=== PATIENT | female | born 1940 | race Caucasian/White ===

== ENCOUNTER 2023-06-19 08:30 | Observation (INO) ==
--- NOTE | 2023-05-18 10:41 | PAT Medication Instructions ---
Medication Instructions Date of Service May 18, 2023 Home Medications acetaminophen 500 mg capsule 500 mg PO BID aspirin 81 mg capsule 81 mg PO QAM atorvastatin 10 mg tablet (Lipitor) 10 mg PO PM calcium 1 dose PO BID cholecalciferol (vitamin D3) 50 mcg (2,000 unit) tablet (Vitamin D3) 50 mcg PO BID coenzyme Q10 100 mg capsule (CoQ-10) 100 mg PO QAM glucosamine sulf dipot chlr,msm,chond 550 mg-C 30 mg-edita 1 mg capsule (Glucosamine Chondroitin) 1 cap PO BID levothyroxine 25 mcg tablet 25 mcg PO QAM loratadine 10 mg tablet (Claritin) 10 mg PO QAM multivitamin 1 tab PO QAM omega-3 fatty acids 1,250 mg PO BID pregabalin 100 mg capsule (Lyrica) 100 mg PO TID sertraline 50 mg tablet (Zoloft) 50 mg PO BID vit C-vit B-htdeef-affxbrzg capsule 1 cap PO QAM ASK your prescriber and surgeon aspirin 81 mg capsule 81 mg PO QAM STOP taking 2 weeks before surgery (or as soon as possible if surgery is within 2 weeks) coenzyme Q10 100 mg capsule (CoQ-10) 100 mg PO QAM glucosamine sulf dipot chlr,msm,chond 550 mg-C 30 mg-edita 1 mg capsule (Glucosamine Chondroitin) 1 cap PO BID omega-3 fatty acids 1,250 mg PO BID vit C-vit X-tocidz-ensoculz capsule 1 cap PO QAM DO NOT take the morning of surgery calcium 1 dose PO BID cholecalciferol (vitamin D3) 50 mcg (2,000 unit) tablet (Vitamin D3) 50 mcg PO BID loratadine 10 mg tablet (Claritin) 10 mg PO QAM multivitamin 1 tab PO QAM Take morning of surgery With a small sip of water, OTHERWISE NOTHING TO EAT OR DRINK AFTER MIDNIGHT: acetaminophen 500 mg capsule 500 mg PO BID levothyroxine 25 mcg tablet 25 mcg PO QAM pregabalin 100 mg capsule (Lyrica) 100 mg PO TID sertraline 50 mg tablet (Zoloft) 50 mg PO BID Take evening before surgery acetaminophen 500 mg capsule 500 mg PO BID atorvastatin 10 mg tablet (Lipitor) 10 mg PO PM calcium 1 dose PO BID cholecalciferol (vitamin D3) 50 mcg (2,000 unit) tablet (Vitamin D3) 50 mcg PO BID pregabalin 100 mg capsule (Lyrica) 100 mg PO TID sertraline 50 mg tablet (Zoloft) 50 mg PO BID Other Notes If you have any questions please call us at [phone] or [phone] or [phone] or [phone]
--- NOTE | 2023-05-22 12:20 | Anesthesiology Consultation ---
Date of Service May 22, 2023 Assessment & Plan (1) Encounter for pre-operative examination: Plan - PCP office note Dr. Purdy 05/09/23: "...left TKR...F/U with Dr. Berg as scheduled. Surgery in " - Outpatient joint assessment: Patient is currently scheduled for inpatient pathway. If re-evaluated and patient/surgeon requests outpatient pathway, patient is not recommended candidate for outpatient joint program from anesthesia standpoints. Chart Review Chart Review: Acceptable Risk for Surgery and Patient seen in Pre Admission Testing Teaching & Discussion Pre-Anesthesia Teaching/Discussion Notes: Instructed NPO after midnight before surgery, except medications with 15 cc of water. Medication instructions provided according to the PAT guidelines. History Surgery Operation Date: 06/19/23 07:00 Proposed Procedures p Left Total Knee Arthroplasty - Chadwick Berg DO Height/Weight Height: 5 ft 6 in Weight: 91.5 kg Allergies Allergy/AdvReac Type Severity Reaction Status Date / Time No Known Allergies Allergy Verified 05/09/23 15:34 Medications Home Medications Medication Instructions Recorded Confirmed Last Taken acetaminophen 500 mg capsule 500 mg PO BID 05/09/23 05/09/23 Unknown aspirin 81 mg capsule 81 mg PO QAM 05/09/23 05/09/23 Unknown atorvastatin 10 mg tablet (Lipitor) 10 mg PO PM 05/09/23 05/09/23 Unknown calcium 1 dose PO BID 05/09/23 05/09/23 Unknown cholecalciferol (vitamin D3) 50 50 mcg PO BID 05/09/23 05/09/23 Unknown mcg (2,000 unit) tablet (Vitamin D3) coenzyme Q10 100 mg capsule 100 mg PO QAM 05/09/23 05/09/23 Unknown (CoQ-10) glucosamine sulf dipot 1 cap PO BID 05/09/23 05/09/23 Unknown chlr,msm,chond 550 mg-C 30 mg-edita 1 mg capsule (Glucosamine Chondroitin) levothyroxine 25 mcg tablet 25 mcg PO QAM 05/09/23 05/09/23 Unknown loratadine 10 mg tablet (Claritin) 10 mg PO QAM 05/09/23 05/09/23 Unknown multivitamin 1 tab PO QAM 05/09/23 05/09/23 Unknown omega-3 fatty acids 1,250 mg PO BID 05/09/23 05/09/23 Unknown pregabalin 100 mg capsule (Lyrica) 100 mg PO TID 05/09/23 05/09/23 Unknown sertraline 50 mg tablet (Zoloft) 50 mg PO BID 05/09/23 05/09/23 Unknown vit C-vit G-gswvai-ppddaaku capsule 1 cap PO QAM 05/09/23 05/09/23 Unknown torsemide 20 mg tablet 20 mg PO DAILY PRN Edema 05/22/23 05/22/23 Unknown Additional Notes: Patient was advised and it was written on medication instructions to NOT take torsemide. She verbalized understanding and denied additional medications, questions or concerns. Past Medical History Medical History (Updated 05/22/23 @ 12:40 by Marie Joseph PA-C) Abdominal adhesions Asthma rare use of PRN inh-last used approx. 1 year ago Chronic pain abdominal adhesions. History of blood transfusion in childhood had fall and subsequent facial trauma with epistaxis that was difficult to control. History of right breast cancer dx'd 2017. surgery + radiation. right arm restriction. Hypothyroidism Limb alert care status right arm Urge incontinence of urine Venous insufficiency wears compression stockings Patient denies h/o stroke, seizures, heart attack, heart failure, DM, HTN, or blood clots/DVTs. Exercise / Class Metabolic Activity III < 4 Walking/Shop/Light housework (ambulates with cane, denies chest discomfort or shortness of breath with usual activities) Past Family History Family History Other No family history of adverse response to anesthesia Past Surgical History Surgical History History of bilateral oophorectomy History of colonoscopy History of hysterectomy History of laparoscopy History of lumpectomy of right breast History of vein stripping BLLE Past Anesthesia History No Hx of Anesthesia Complications and No Family Hx of Anesthesia Complications History of PONV No Hx of PONV and No Hx of Motion Sickness Social History Smoking Status: Former smoker Do You Dip or Chew Tobacco: No Smoking End Date: 1987 Hx Alcohol Use: Yes Alcohol type: wine alcohol intake frequency: holidays/special occasions only Hx Substance Use: No substance use type: does not use Review of Systems Patient denies chest pain, shortness of breath, dyspnea on exertion, snoring, witnessed apneas, reflux, fever, chills, cough, wheezing, or palpitations. Physical Exam Vital Signs Vitals BP 161/80 (Pt reports some stress/anxiety regarding the drive here today with traffic and being in the hospital for appt) P 77 TEMP 97.8 SP02 94% on RA RESP 18 Physical Patient resting comfortably in chair in no acute distress, alert and oriented, responding appropriately throughout visit Mildly limited cervical extension range of motion without pain TMD 3.5 finger breadths Mallampati Score 3 Dentition: several implants, caps and crowns, denies chipped or loose teeth, or bridges Lungs: normal respiratory effort. Good air movement, clear throughout to auscultation, no adventitious breath sounds Cardiac: regular rate and rhythm, no murmurs noted Carotid arteries: negative bruit bilat Lab Results Anesthesia Preop Results Results Anesthesia Widget: WBC 6.98 K/ul (4.8-10.8) 05/22/23 Hgb 13.0 g/dl (12.0-16.0) 05/22/23 Hct 39.2 % (37.0-47.0) 05/22/23 Plt 222 K/uL (130-400) 05/22/23 Na 142 mmol/L (136-145) 05/22/23 K 4.6 mmol/L (3.5-5.1) 05/22/23 Cl 107 mmol/L (98-107) 05/22/23 CO2 32 mmol/L (21-32) 05/22/23 BUN 26 mg/dl (6-23) H 05/22/23 Creat 0.60 mg/dl (0.6-1.2) 05/22/23 Glucose Level 92 mg/dl (70-99(Fasting)) 05/22/23 PT 10.3 Seconds (9.0-12.0) 05/22/23 PTT 28 Seconds (21-31) 05/22/23 INR 0.9 (0.9-1.1) 05/22/23 Blood Type A Positive 05/22/23 Antibody Screen NEGATIVE 05/22/23 Testing Electrocardiogram Date: 05/22/23 NSR, rate 75 bpm Chest X-Ray Date: 08/31/22 No acute cardiopulmonary abnormality
--- NOTE | 2023-06-15 12:28 | History & Physical Report ---
Date of Service June 15, 2023 Assessment & Plan (1) Osteoarthritis of left knee: We will proceed with a left total knee arthroplasty. Postoperatively she will be started on aspirin for DVT prophylaxis and kept overnight in the hospital for postop medical management. Plans to go to outpatient physical therapy in [facility] upon discharge. History of Present Illness Chief Complaint: Osteoarthritis of the left knee. Primary Care Provider: Deya Titus Gurwinder Crabtree is a pleasant 82-year-old female who lives up in the [facility]. She has been dealing with chronic increasing left knee pain. She uses a cane to ambulate. X-rays and clinical examination have been diagnostic for advanced arthritis of her left knee. She has been receiving injections and care from another physician. Unfortunately, the injections are no longer helping. After failing conservative treatment, she has elected proceed with a left total knee arthroplasty. Allergies Allergy/AdvReac Type Severity Reaction Status Date / Time No Known Allergies Allergy Verified 05/09/23 15:34 Home Medications Medication Instructions Recorded Confirmed Type acetaminophen 500 mg capsule 500 mg PO BID 05/09/23 05/09/23 History aspirin 81 mg capsule 81 mg PO QAM 05/09/23 05/09/23 History atorvastatin 10 mg tablet (Lipitor) 10 mg PO PM 05/09/23 05/09/23 History calcium 1 dose PO BID 05/09/23 05/09/23 History cholecalciferol (vitamin D3) 50 50 mcg PO BID 05/09/23 05/09/23 History mcg (2,000 unit) tablet (Vitamin D3) coenzyme Q10 100 mg capsule 100 mg PO QAM 05/09/23 05/09/23 History (CoQ-10) glucosamine sulf dipot 1 cap PO BID 05/09/23 05/09/23 History chlr,msm,chond 550 mg-C 30 mg-edita 1 mg capsule (Glucosamine Chondroitin) levothyroxine 25 mcg tablet 25 mcg PO QAM 05/09/23 05/09/23 History loratadine 10 mg tablet (Claritin) 10 mg PO QAM 05/09/23 05/09/23 History multivitamin 1 tab PO QAM 05/09/23 05/09/23 History omega-3 fatty acids 1,250 mg PO BID 05/09/23 05/09/23 History pregabalin 100 mg capsule (Lyrica) 100 mg PO TID 05/09/23 05/09/23 History sertraline 50 mg tablet (Zoloft) 50 mg PO BID 05/09/23 05/09/23 History vit C-vit W-zepkuv-jacscdtz capsule 1 cap PO QAM 05/09/23 05/09/23 History torsemide 20 mg tablet 20 mg PO DAILY PRN Edema 05/22/23 05/22/23 History Past Med/Surg History Medical History History of blood transfusion in childhood had fall and subsequent facial trauma with epistaxis that was difficult to control. Limb alert care status right arm Venous insufficiency wears compression stockings Chronic pain abdominal adhesions. Hypothyroidism Abdominal adhesions Urge incontinence of urine History of right breast cancer dx'd 2016. surgery + radiation. right arm restriction. Asthma rare use of PRN inh-last used approx. 1 year ago Surgical History History of laparoscopy History of bilateral oophorectomy History of hysterectomy History of colonoscopy History of lumpectomy of right breast History of vein stripping BLLE Family History Other No family history of adverse response to anesthesia Social History Smoking Status: Former smoker Smoking End Date: 1987; Second Hand Exposure: No; Do You Dip or Chew Tobacco: No; Tobacco Cessation Education Requested by Patient: No Hx Alcohol Use: Yes Alcohol type: wine Hx Substance Use: No Preferred Language: Kinyarwanda Communication Ability: Effective Kickboxing Instructor Required: No Beliefs That Will Affect Care: None and Amish Amish Beliefs: Alevism Current Living Situation: Spouse Feels Safe at Home: Yes Safety Concerns: Feels Safe At This Time Assistive Devices: Cane, Glasses and Walker Review of Systems All systems reviewed & are unremarkable except as noted in HPI & below. Physical Exam Physical examination of the left knee, she has a significant varus deformity. She has range of motion from 5 to 115 degrees.. Constitutional WD/WN, vitals as above Eyes PERRL, conjunctivae normal, anicteric sclerae ENMT external ear and nose normal, oropharynx normal Neck trachea midline, no thyromegaly Respiratory normal respiratory effort Cardiovascular RRR, no murmur, no edema Gastrointestinal (Abdomen) normal bowel sounds, soft, nontender, no hepatosplenomegaly Psychiatric A+Ox3, euthymic affect Results & Data Results & Data Laboratory Results . Diagnostic Findings X-rays of the left knee show advanced osteoarthritis with joint space narrowing, osteophyte formation, and mzqz-ov-gnwi tubulation. PG Care Time/CCT Total # of Minutes Spent Total Time Spent with Patient: Total time spent is greater than 50% in coordination of care (as documented) at patient's floor/unit and/or counseling patient: Coding Level of Care Code None Diagnoses Osteoarthritis of left knee M17.12
[~2023-06-19 08:30] MED LIST: ROPIVACAINE 0.5% 5 MG/ML 30 ML VIAL ONE
--- NOTE | 2023-06-19 09:41 | History & Physical Bridge Note ---
Date of Service June 19, 2023 History & Physical Bridge Note I have examined the patient, reviewed the History & Physical and in the interval since the performance of the History & Physical I have noted the following changes of clinical significance: no changes noted
[2023-06-19] MEDS: GABAPENTIN 300 MG CAP PO SCH (09:50)
[2023-06-19] MEDS: ACETAMINOPHEN 500 MG TAB PO SCH ×2 (09:50→14:00)
[2023-06-19] MEDS: LR 60ML/HR IV SCH (09:51)
[2023-06-19] MEDS: LR 500ML BOLUS, THEN 15ML/HR IV SCH (09:51)
[2023-06-19] MEDS: dexAMETHasone**PF** 10 MG/ML VIAL IV SCH (09:51)
[2023-06-19] MEDS: FAMOTIDINE 20 MG TAB PO SCH (09:51)
[2023-06-19] MEDS ORDERED: fentaNYL citrate PF 100 MCG/2 ML VIAL IV PRN (10:03)
[2023-06-19] MEDS ORDERED: ATROPINE SULFATE 0.1 MG/ML 10ML SYR IV PRN (10:03)
[2023-06-19] MEDS ORDERED: ONDANSETRON INJ 2 MG/ML 2 ML VIAL IV PRN ×2 (10:03→13:24)
[2023-06-19] MEDS ORDERED: HYDROmorphone INJ 1 MG/ML SYRINGE IV PRN (10:03)
[2023-06-19] MEDS ORDERED: ePHEDrine sulfate 50 MG/ML AMP IV PRN (10:03)
[2023-06-19] MEDS ORDERED: fentaNYL citrate PF 100 MCG/2 ML VIAL ONE (10:12)
[2023-06-19] MEDS ORDERED: MIDAZOLAM HCL 1 MG/ML 2ML VIAL ONE (10:12)
[2023-06-19] MEDS: TRANEXAMIC ACID 1,000 MG **IV Pre-op IV SCH (10:13)
[2023-06-19] MEDS: ceFAZolin 2000MG 2,000 MG/15 ML SYR IV SCH ×2 (10:34→17:15)
[2023-06-19] MEDS: ROPIV 0.5% 246mg, Ketorolac 30mg, EPINEPHrine 0.5mg in NSS INFIL SCH (11:09)
[2023-06-19] MEDS: ORTHO JOINT ANESTHETIC ONE (11:10)
[2023-06-19] MEDS: TRANEXAMIC ACID 1,000 MG **IV Intra-op IV SCH (11:45)
--- NOTE | 2023-06-19 11:55 | Operative Report ---
PG Post Operative Report Pre & Post Diagnosis Operation Date: 06/19/23 10:00 Pre-Op Diagnosis: Left Knee Degenerative Joint Disease Post-Op Diagnosis: Left Knee Degenerative Joint Disease I identified the patient and participated in the time-out.: Yes Procedure Operation Date: 06/19/23 10:00 Actual Procedures p Left Total Knee Arthroplasty(Left) - Chadwick Berg DO Surgeon Chadwick Berg DO [employer] Sales Associate Chadwick Castro PA-C Estimated Blood Loss 30 Findings Consistent with Post-Op Diagnosis Specimens Left femoral tibial bone Description of Procedure Implants used: I used a Jay Person[employer] total knee arthroplasty system with a size 10 PS femur, F tibia, 31 oval patella, and a size 12 CPS polyethylene bearing. All comp onents were cemented in place with Biomet cement. Leyda arrived [facility] for the above procedure. She was seen in the preoperative holding area and the operative extremity was identified and signed. She was given a preoperative antibiotic, TXA, a spinal anesthetic and an adductor nerve block. She was taken back to the operating room and laid on the table in supine position. She was given basic sedation. The operative knee was then prepped and draped in sterile fashion. A timeout was done, and the patient and the operative extremity was properly identified. A midline incision was made directly over the patella. Dissection was taken down to the extensor mechanism. A medial parapatellar arthrotomy was used. The medial retinaculum was released and the fat pad was mostly excised. The knee was flexed and the ACL, PCL, and meniscus were removed. A drill was sent down the center of the femoral canal followed by an intramedullary esdras. Off that esdras a distal femoral cutting block was placed. 9 mm was resected off the distal femur at 5 of valgus. A posterior referencing AP sizing guide was then placed on the distal femur. The femur measured to be a size 10. 2 drill holes were placed in 3 of external rotation. A 4-in-1 cutting block was then impacted into place. Anterior, posterior, and chamfer cuts were then made. The proximal tibia was then exposed. An external tibial alignment guide was placed. A tibial cut guide was then anchored in place and the proximal tibia was then resected. The posterior aspect of the knee was then opened up and any additional meniscus fragments and osteophytes were removed. The tibia measured to be a size F. The tibial plate was then placed in the appropriate rotation and the tibia was drilled and punched. Trial components were then placed. I used a size 12 CPS polyethylene insert. The knee was brought through a full range of motion and felt to be stable. The peg holes for the femoral component were then drilled. The patella was then everted and 9 mm was resected off the posterior aspect of the patella. The patella measured to be a size 31 oval. 3 peg holes were then drilled. A trial patella was placed. The knee was once again brought through a full range of motion and felt to be stable. Trial components were then removed. The surrounding soft tissues were injected with 100 cc of an orthopedic pain control cocktail. All components were then cemented into place with Biomet cement. The final polyethylene insert was then snapped into place. Once cement was dry the tourniquet was deflated. Hemostasis was obtained. A dilute betadyne lavage was then done for 3 minutes. The joint was then irrigated with normal saline solution. The medial parapatellar arthrotomy was then closed with #1 Vicryl suture. The skin was closed with 2-0 Vicryl, 3-0V lock suture, and manjula. A soft compressive dressing was placed. She was then transferred to a hospital bed and taken to the postanesthesia care unit in stable condition. She tolerated the procedure well. Chadwick Castro PA-C, was present for the entire procedure. He was critical for patient positioning, prepping, draping, retraction exposure, wound closure and application of sterile dressing. I attest to the content of the Intraoperative Record and any orders documented therein. Any exceptions are noted below.
--- NOTE | 2023-06-19 12:48 | XRay Report ---
LEFT KNEE 2 VIEWS History: Left total knee arthroplasty. Degenerative arthritis. Postop. FINDINGS: The patient is status post a left total knee arthroplasty. The hardware is intact. No fract ure or dislocation. Skin manjula are in place. IMPRESSION: Left total knee arthroplasty. No evidence for hardware complication. ACT 112: Negative or not required by law. Electronically signed by: Aris Hutton M.D. 06/19/2023 12:46 PM
[2023-06-19] MEDS ORDERED: bisacodyL 10 MG SUPP PR PRN (13:24)
[2023-06-19] MEDS ORDERED: METOCLOPRAMIDE HCL INJ 5 MG/ML 2 ML VIAL IV PRN (13:24)
[2023-06-19] MEDS ORDERED: oxyCODONE HCL IR 5 MG TAB (IMMEDIATE RELEASE) PO PRN (13:24)
[2023-06-19] MEDS ORDERED: MAGNESIUM HYDROXIDE SUSP 30 ML UDC PO PRN (13:24)
[2023-06-19] MEDS ORDERED: NALOXONE HCL 0.4 MG/1 ML VIAL/CARP IV PRN (13:24)
[2023-06-19] MEDS ORDERED: HYDROmorphone INJ 0.5 MG/0.5 ML SYR IV PRN (13:24)
[2023-06-19] MEDS ORDERED: TORSEMIDE 20 MG TAB PO PRN (13:24)
[2023-06-19] MEDS: SODIUM CHLORIDE 0.9% 1,000 ML IV SCH (13:55)
[2023-06-19] MEDS: PREGABALIN 100 MG CAP PO SCH (14:00)
[2023-06-19] MEDS: KETOROLAC TROMETHAMINE 15 MG/ML VIAL IV SCH (14:00)
--- NOTE | 2023-06-19 15:12 | Anesthesiology Progress Note ---
Date of Service June 19, 2023 Anesthesia Post Procedure Vital Signs Vital Signs: Temp Pulse Pulse Resp BP Pulse Ox O2 Del Method 06/19/23 14:08 67 18 173/74 H 96 Room Air 06/19/23 13:51 36.3 C L 67 16 169/76 H 93 Room Air 06/19/23 13:10 36.4 C L 64 16 178/74 H 98 Room Air 06/19/23 12:55 55 L 15 156/69 H 93 Room Air 06/19/23 12:45 36.4 C L 56 L 15 148/67 H 94 Room Air 06/19/23 12:35 36.3 C L 58 L 14 160/70 H 94 Room Air 06/19/23 12:25 64 12 165/76 H 96 Room Air 06/19/23 12:15 63 14 141/71 H 100 Oxymask 06/19/23 12:05 36.0 C L 61 12 143/75 H 100 Oxymask 06/19/23 09:11 36.4 C L 69 20 169/76 H 94 Room Air O2 Flow Rate 06/19/23 14:08 06/19/23 13:51 06/19/23 13:10 06/19/23 12:55 0 06/19/23 12:45 0 06/19/23 12:35 0 06/19/23 12:25 0 06/19/23 12:15 8 06/19/23 12:05 8 06/19/23 09:11 Transfer of Care Handoff Completed per policy Notes Mental Status: alert / awake / arousable and participated in evaluation Patient Amnestic to Procedure: Yes Nausea / Vomiting: adequately controlled Pain: adequately controlled Airway Patency, RR, SpO2: stable & adequate BP & HR: stable & adequate Hydration State: stable & adequate Neuraxial Anesthesia: was administered and sensory block is resolving Anesthetic Complications: no major complications apparent and Pt Satisfied with anesthetic care
[2023-06-19] MEDS: ASPIRIN 81 MG ECTAB PO SCH (20:22)
[2023-06-19] MEDS: SENNA 8.6 MG TAB PO SCH (20:22)
[2023-06-19] MEDS: SERTRALINE HCL 50 MG TABLET PO SCH (20:22)
[2023-06-19] MEDS: ATORVASTATIN 10 MG TAB PO SCH (20:23)
[2023-06-19] MEDS: DOCUSATE SODIUM 100 MG CAP PO SCH (20:23)
--- NOTE | 2023-06-20 06:43 | Orthopedic Progress Note ---
Date of Service June 20, 2023 Assessment & Plan (1) Status post left knee replacement: Overall she is doing very well. She is not having much pain in the left knee. She will be seen by physical therapy today for ambulation and range of motion exercises. She is on aspirin for DVT prophylaxis. She can be discharged home later today. She will follow-up with orthopedics in [address]abtree was seen and examined at bedside this morning. Overall she is doing fairly well. She is not having much pain in her left knee. She has been up and ambulating to the bathroom. She has no complaints.. Review of Systems All systems reviewed & are unremarkable except as noted in HPI & below. Physical Exam On physical examination of the left knee, the dressing is clean and dry. Her leg is out in full extension. She has active dorsiflexion plantarflexion of her left ankle.. Results & Data Results & Data Laboratory Results . Diagnostic Findings Postoperative x-rays of the left knee show the prosthesis to be in anatomic alignment without any evidence of fracture, desiccation, or loosening.. PG Care Time/CCT Total # of Minutes Spent Total Time Spent with Patient: Total time spent is greater than 50% in coordination of care (as documented) at patient's floor/unit and/or counseling patient: Coding Level of Care Code 04204 Post Operative Follow-Up Diagnoses Status post left knee replacement Z96.652
--- NOTE | 2023-06-20 06:44 | Discharge Summary ---
Date of Service June 20, 2023 Admission HPI (Per Admitting) Leyda is a pleasant 82-year-old female who lives up in the [facility]. She has been dealing with chronic increasing left knee pain. She uses a cane to ambulate. X-rays and clinical examination have been diagnostic for advanced arthritis of her left knee. She has been receiving injections and care from another physician. Unfortunately, the injections are no longer helping. After failing conservative treatment, she has elected proceed with a left total knee arthroplasty. Admission Exam (Per Admitting) Physical examination of the left knee, she has a significant varus deformity. She has range of motion from 5 to 115 degrees.. Principal Diagnosis Same as "Discharge Diagnosis" noted below under Discharge Instructions. Discharge Exam On physical examination of the left knee, the dressing is clean and dry. Her leg is out in full extension. She has active dorsiflexion plantarflexion of her left ankle.. Discharge Data Procedures Performed Operation Date: 06/19/23 10:00 Actual Procedures p Left Total Knee Arthroplasty(Left) - Chadwick Berg DO Ordered Studies 06/19/23 05:00 US - OR guided needle placemen Routine Hospital Course (1) Status post left knee replacement: On June 19, 2023 Leyda arrived at [facility] and underwent a left knee replacement without complication. She had a spinal anesthetic. Postoperatively she was started on aspirin for DVT prophylaxis and transferred to the general orthopedic floors. Her hospital course was uneventful. On postop day #1, her vital signs were stable and her pain was well-controlled. She was able to participate well with physical therapy doing ambulation and range of motion exercises. She was then discharged to home. She will follow-up with orthopedics in 2 weeks. PG Care Time/CCT Total # of Minutes Spent Total Time Spent with Patient: Total time spent is greater than 50% in coordination of care (as documented) at patient's floor/unit and/or counseling patient: Discharge Plan Discharge Items Patient Disposition: Home - Self-Care Reason For Visit: Left Knee Degenerative Joint Disease Discharge Diagnosis: Left knee replacement Activity: Per Instructions section Non-emergency contact: Surgeon Call non-emergency contact if: your wound has increased redness and your wound has increased drainage Follow-up/Referrals: Deya Purdy D.OReinaldo [Primary Care Provider] - Diet: Regular Addtl Attending Provider Instructions: Activity and Therapy Recommendations: * If you are using [facility] then therapy will be provided at your home until they feel you have accomplished all of your goals. * If you are using [facility] then Physical Therapy will be provided until they feel you are ready to start Outpatient Physical Therapy. * If you are not using home therapy then Outpatient Physical Therapy should start about 3-5 days from your day of surgery. Therapy will last about 6-10 weeks * It is important not to put a pillow under your knee when you are relaxing or sleeping. It is just as important to make sure you are getting your knee perfectly straight as it is to regain your knee bend. * You were shown a series of exercises in the hospital. Do these exercises three times each day including the exercises you were shown in physical therapy. * Get up and walk several times each day. For the first four weeks, try not to stand or walk for more than one hour at a time. If you do stand or walk for more than one hour, you will not hurt anything, but your leg will likely swell. * As you feel comfortable, you may change from the walker or crutches to a cane and then to independent walking. Medications: * Narcotic You will likely be sent home from the hospital with a prescription for the narcotic pain medication that worked best throughout your stay. * Cefadroxil -take the antibiotic twice a day for 10 days to help prevent infection. * Aspirin Most patients will be required to take Aspirin 81mg twice a day for 6 weeks after surgery. This is obtained [id number] and a prescription is not necessary. * Other medications may be prescribed for specific circumstances. If you have any questions, please call the office at . * Resume previous home medications unless otherwise instructed TEDs/Elastic Stockings: The white elastic stockings help limit swelling and prevent blood clots from forming in your legs.~ The more you wear them, the more they work. Wear them for six weeks. Dressing Care: The dressing can be changed after physical therapy on postop day #1. Daily dry dressing changes for a few days, especially if the incision is still draining some. If the incision is not draining then you may leave the manjula open to air. If there is a little bit of drainage or if the manjula are getting stuck on your clothing then cover the incision with a dry dressing. The manjula will be removed at your 2 week follow-up appointment. Showering: You may shower 5 days from the day of surgery as long as the incision is no longer draining. You may shower with the manjula exposed. Let soapy water run over the manjula and pat them dry. Do not scrub or soak the incision. Things To Watch For: * Drainage from the incision site that occurs more than one week after your surgery. * Increased redness at the incision site. * Fever above 102 degrees Fahrenheit. * Unusual chest pain or shortness of breath. * Call [facility] at with any of the above problems Follow-Up Visit: Follow-up with Dr. Berg's PA (Chadwick Castro) 2-3 weeks after your day of bridget linn. He will remove your manjula and answer any questions. If you have any additional questions or concerns, Dr Berg is usually in the office at the same time and will be available An appointment was probably scheduled when you signed-up for surgery in the office. If you have any questions call Office Instructions: More detailed instructions as well as Frequently Asked Questions were provided in a folder by our office when you signed-up for surgery. Please review these instructions when you get home. If you have any further questions or concerns, please feel free to call the office at [phone] Pending Studies at Discharge: No Stand-Alone Forms: [facility], Smoking Cessation Medications and DC Order Prescriptions: New oxycodone 5 mg Tablet 5 mg PO Q4H PRN (Reason: pain) Qty: 30 0RF cefadroxil 500 mg capsule 500 mg PO BID 10 Days Qty: 20 0RF Continued sertraline [Zoloft] 50 mg Tablet 50 mg PO BID pregabalin [Lyrica] 100 mg Capsule 100 mg PO TID multivitamin Tablet 1 tab PO QAM atorvastatin [Lipitor] 10 mg Tablet 10 mg PO PM levothyroxine 25 mcg Tablet 25 mcg PO QAM loratadine [Claritin] 10 mg Tablet 10 mg PO QAM Ocuvite Lutein Capsule 1 cap PO QAM coenzyme Q10 [CoQ-10] 100 mg Capsule 100 mg PO QAM [place] 3 Fish Oil Capsule 1,250 mg PO BID cholecalciferol (vitamin D3) [Vitamin D3] 50 mcg (2,000 unit) Tablet 50 mcg PO BID Glucosamine Chondroitin 550-30-1 mg Capsule 1 cap PO BID calcium 1 dose PO BID torsemide 20 mg Tablet 20 mg PO DAILY PRN (Reason: Edema) acetaminophen [Tylenol Arthritis Pain] 650 mg Tablet Extended Release 650 mg PO BID Patient Comments: pt states that she takes 2 tablets bid Changed aspirin 81 mg Capsule 81 mg PO BID 42 Days Qty: 0 0RF Discharge Orders: Discharge Order (Routine); Ordered 06/20/23 Ordered By: Chadwick Berg Admission Data Admit Date/Time: 06/19/23 12:11 Attending Provider: Chadwick Berg Admit Provider: Chadwick Berg Primary Care Provider: Deya Purdy
[2023-06-20] MEDS: LEVOTHYROXINE SODIUM 25 MCG TABLET PO SCH (08:12)
[2023-06-20] MEDS: dexAMETHasone 4 MG TAB PO SCH (08:12)
[2023-06-20] MEDS: MULTIVITAMIN TAB PO SCH (08:13)
[2023-06-20] MEDS: LORATADINE 10 MG TAB PO SCH (08:13)
== END 2023-06-20 11:51 | disposition home health service (06) ==
LOC: ASU 08:30 → 3E 08:30

== ENCOUNTER 2024-06-17 09:00 | Observation (INO) ==
--- NOTE | 2024-05-17 10:57 | PAT Medication Instructions ---
Medication Instructions Date of Service May 17, 2024 Home Medications Medication Instructions Recorded aspirin 81 mg capsule 81 mg PO BID 42 days #0 caps 06/19/23 oxycodone 5 mg tablet 5 mg PO Q4H PRN pain #30 tabs 06/19/23 atorvastatin 10 mg tablet (Lipitor) 10 mg PO PM calcium 1 dose PO BID cholecalciferol (vitamin D3) 50 mcg (2,000 unit) tablet (Vitamin D3) 50 mcg PO BID coenzyme Q10 100 mg capsule (CoQ-10) 100 mg PO QAM glucosamine sulf dipot chlr,msm,chond 550 mg-C 30 mg-edita 1 mg capsule (Glucosamine Chondroitin) 1 cap PO BID levothyroxine 25 mcg tablet 25 mcg PO QAM loratadine 10 mg tablet (Claritin) 10 mg PO QAM multivitamin 1 tab PO QAM omega-3 fatty acids 1,250 mg PO BID pregabalin 100 mg capsule (Lyrica) 100 mg PO TID sertraline 50 mg tablet (Zoloft) 50 mg PO BID vit C-vit H-zmbmdb-otxgsuku capsule 1 cap PO QAM torsemide 20 mg tablet 20 mg PO DAILY PRN Edema acetaminophen 650 mg tablet,extended release (Tylenol Arthritis Pain) 650 mg PO BID aspirin 81 mg capsule 81 mg PO BID oxycodone 5 mg tablet 5 mg PO Q4H PRN pain albuterol sulfate 90 mcg/actuation aerosol inhaler 2 puff inhalation QID PRN sob ASK your prescriber and surgeon aspirin 81 mg capsule 81 mg PO BID STOP taking 2 weeks before surgery coenzyme Q10 100 mg capsule (CoQ-10) 100 mg PO QAM glucosamine sulf dipot chlr,msm,chond 550 mg-C 30 mg-edita 1 mg capsule (Glucosamine Chondroitin) 1 cap PO BID omega-3 fatty acids 1,250 mg PO BID vit C-vit E-ltmuni-lzsflvrp capsule 1 cap PO QAM DO NOT take the morning of surgery calcium 1 dose PO BID cholecalciferol (vitamin D3) 50 mcg (2,000 unit) tablet (Vitamin D3) 50 mcg PO BID loratadine 10 mg tablet (Claritin) 10 mg PO QAM multivitamin 1 tab PO QAM torsemide 20 mg tablet 20 mg PO DAILY PRN Edema Take morning of surgery With a small sip of water, OTHERWISE NOTHING TO EAT OR DRINK AFTER MIDNIGHT: levothyroxine 25 mcg tablet 25 mcg PO QAM pregabalin 100 mg capsule (Lyrica) 100 mg PO TID sertraline 50 mg tablet (Zoloft) 50 mg PO BID acetaminophen 650 mg tablet,extended release (Tylenol Arthritis Pain) 650 mg PO BID oxycodone 5 mg tablet 5 mg PO Q4H PRN pain (if needed) albuterol sulfate 90 mcg/actuation aerosol inhaler 2 puff inhalation QID PRN sob (use if needed; please bring with you to hospital day of surgery if possible) Take evening before surgery atorvastatin 10 mg tablet (Lipitor) 10 mg PO PM calcium 1 dose PO BID cholecalciferol (vitamin D3) 50 mcg (2,000 unit) tablet (Vitamin D3) 50 mcg PO BID pregabalin 100 mg capsule (Lyrica) 100 mg PO TID sertraline 50 mg tablet (Zoloft) 50 mg PO BID torsemide 20 mg tablet 20 mg PO DAILY PRN Edema (if needed) acetaminophen 650 mg tablet,extended release (Tylenol Arthritis Pain) 650 mg PO BID oxycodone 5 mg tablet 5 mg PO Q4H PRN pain (if needed) albuterol sulfate 90 mcg/actuation aerosol inhaler 2 puff inhalation QID PRN sob (if needed) Other Notes If you have any questions please call us at [phone] or [phone] or [phone] or [phone]
--- NOTE | 2024-05-22 12:44 | Anesthesiology Consultation ---
Date of Service May 22, 2024 Assessment & Plan (1) Encounter for pre-operative examination: - Infectious disease screening: Per assessment on 05/22/24- No known recent infectious disease contacts or current infectious disease symptoms. - Outpatient joint assessment: Pt currently scheduled for inpatient pathway. If surgeon requests review for outpatient joint pathway, patient is not recommended candidate for outpatient joint program from anesthesia standpoint based on available information. - RUE limb restriction - S/P Left TKA (06/19/23): SAB at L3-4 (1 attempt) + regional at [facility] - PCP visit (05/01/24): BP 132/78. OMM performed for knee/shoulder pain. "Having nerve block in knee 06/07 and R TKA 07/07/2024." C/o hemorrhoids (improved). Chart Review Chart Review: Acceptable Risk for Surgery (pending evaluation DOS) and Patient seen in Pre Admission Testing Teaching & Discussion Pre-Anesthesia Teaching/Discussion Notes: Instructed NPO after midnight before surgery,except medications with 15 cc of water. Medication instructions provid ed according to the PAT guidelines. History Surgery Operation Date: 06/17/24 07:00 Proposed Procedures p Right Total Knee Arthroplasty - Chadwick Berg, DO Height/Weight Height: 5 ft 5 in Weight: 89.3 kg Allergies Allergy/AdvReac Type Severity Reaction Status Date / Time Penicillins Allergy Mild Rash per Verified 05/22/24 12:54 records, tolerated Amoxicillin since per patient Sulfa (Sulfonamide Allergy Rash Verified 05/22/24 12:54 Antibiotics) Medications Home Medications Medication Instructions Recorded Confirmed Last Taken atorvastatin 10 mg tablet (Lipitor) 10 mg PO PM 05/09/23 05/22/24 06/19/23 05:00 calcium 1 dose PO BID 05/09/23 05/22/24 06/18/23 07:00 cholecalciferol (vitamin D3) 50 50 mcg PO BID 05/09/23 05/22/24 06/18/23 07:00 mcg (2,000 unit) tablet (Vitamin D3) coenzyme Q10 100 mg capsule 100 mg PO QAM 05/09/23 05/22/24 06/05/23 (CoQ-10) glucosamine sulf dipot 1 cap PO BID 05/09/23 05/22/24 06/05/23 chlr,msm,chond 550 mg-C 30 mg-edita 1 mg capsule (Glucosamine Chondroitin) levothyroxine 25 mcg tablet 25 mcg PO QAM 05/09/23 05/22/24 06/19/23 05:00 loratadine 10 mg tablet (Claritin) 10 mg PO QAM 05/09/23 05/22/24 06/18/23 07:00 multivitamin 1 tab PO QAM 05/09/23 05/22/24 06/05/23 omega-3 fatty acids 1,250 mg PO BID 05/09/23 05/22/24 06/05/23 pregabalin 100 mg capsule (Lyrica) 100 mg PO TID 05/09/23 05/22/24 06/19/23 05:00 sertraline 50 mg tablet (Zoloft) 50 mg PO BID 05/09/23 05/22/24 06/19/23 05:00 vit C-vit D-bacjor-icpnlxzz capsule 1 cap PO QAM 05/09/23 05/22/24 06/05/23 torsemide 20 mg tablet 20 mg PO DAILY PRN Edema 05/22/23 05/22/24 Unknown acetaminophen 650 mg 650 mg PO BID 06/19/23 05/22/24 06/19/23 05:00 tablet,extended release (Tylenol Arthritis Pain) aspirin 81 mg capsule 81 mg PO BID 42 days #0 caps 06/19/23 05/22/24 06/18/23 07:00 albuterol sulfate 90 mcg/actuation 2 puff inhalation QID PRN sob 05/17/24 05/22/24 Unknown aerosol inhaler Past Medical History Medical History Abdominal adhesions Asthma Chronic pain Abdominal adhesions History of blood transfusion During childhood (after fall > subsequent facial trauma with epistaxis that was difficult to control) History of right breast cancer Dx 2017 > surgery + radiation RUE restriction HLD (hyperlipidemia) Hypothyroidism Limb alert care status RUE Osteoarthritis Urge incontinence of urine Varicose vein of leg Most pronounced between right groin and right knee Venous insufficiency Wears compression stockings Exercise / Class Metabolic Activity III < 4 Walking/Shop/Light housework (uses cane) Past Family History Family History Other No family history of adverse response to anesthesia Past Surgical History Surgical History History of arthroplasty of left knee Left TKA (06/19/23): SAB at L3-4 (1 attempt) + regional at [facility] History of bilateral oophorectomy History of colonoscopy History of hysterectomy History of laparoscopy History of lumpectomy of right breast History of vein stripping BL LE Past Anesthesia History No Hx of Anesthesia Complications and No Family Hx of Anesthesia Complications History of PONV No Hx of PONV and No Hx of Motion Sickness Social History Smoking Status: Former smoker Do You Dip or Chew Tobacco: No Smoking End Date: 1984 Hx Alcohol Use: No Alcohol type: wine alcohol intake frequency: holidays/special occasions only Hx Substance Use: No substance use type: does not use Review of Systems Patient denies chest pain, shortness of breath, fever, chills, cough, wheezing. Physical Exam Vital Signs BP 180/75 (significant pain in arm with movement for BP reading) P 79 TEMP 97.8 SP02 95%RA RESP 16 Physical Decreased cervical extension range of motion. Full TMJ range of motion. TMD > 3.5 finger breaths Mallampati Score I Dentition: missing sides, + implants (sides) Lungs: clear throughout to auscultation Cardiac: regular rate and rhythm, no murmurs noted Spine: kyphosis Carotid arteries: negative bruit Extremities: wearing compression stockings Lab Results Anesthesia Preop Results Results Anesthesia Widget: WBC 6.42 K/ul (4.8-10.8) 05/22/24 Hgb 11.7 g/dl (12.0-16.0) L 05/22/24 Hct 36.4 % (37.0-47.0) L 05/22/24 Plt 198 K/uL (130-400) 05/22/24 Na 141 mmol/L (136-145) 05/22/24 K 4.3 mmol/L (3.5-5.1) 05/22/24 Cl 105 mmol/L (98-107) 05/22/24 CO2 32 mmol/L (21-32) 05/22/24 BUN 28 mg/dl (6-23) H 05/22/24 Creat 0.64 mg/dl (0.6-1.2) 05/22/24 Glucose Level 91 mg/dl (70-99(Fasting)) 05/22/24 PT 10.3 Seconds (9.0-12.0) 05/22/24 PTT 28 Seconds (21-31) 05/22/24 INR 0.9 (0.9-1.1) 05/22/24 Blood Type A Positive 05/22/24 Antibody Screen NEGATIVE 05/22/24 Testing Electrocardiogram Date: 05/22/24 NSR at 73bpm. "Normal ECG" Chest X-Ray Date: 05/22/24 FINDINGS: Heart size and pulmonary vasculature are normal. Lungs are mildly hyperexpanded. No effusion or consolidation. There is a small nodular density at the right lung apex on both views. IMPRESSION: 1. No acute findings. 2. Right apical pulmonary nodule. No prior exams are available for comparison to determine the chronicity of this finding. If there is prior imaging that demonstrates greater than two-year stability of this finding, no further evaluation is needed. If not, follow-up chest CT is recommended. CXR findings forwarded to PCP. PCP response 05/25/24: "No imaging needed. Hx of TB as a young adult.. CXR stable x 15 years" > Previous CXR reports forwarded from PCP to us and scanned into chart*
[~2024-06-17 09:00] MED LIST changes: +BUPIVACAINE 0.5 % 5 MG/1 ML PF 10ML VIAL ONE; +MIDAZOLAM HCL 1 MG/ML 2ML VIAL ONE; +fentaNYL citrate PF 100 MCG/2 ML VIAL ONE
[2024-06-17] MEDS: LR 500ML BOLUS, THEN 15ML/HR IV SCH (09:42)
[2024-06-17] MEDS: GABAPENTIN 300 MG CAP PO SCH (09:42)
[2024-06-17] MEDS: ACETAMINOPHEN 500 MG TAB PO SCH ×2 (09:42→14:11)
[2024-06-17] MEDS: FAMOTIDINE 20 MG TAB PO SCH (09:42)
[2024-06-17] MEDS: LR 60ML/HR IV SCH (09:43)
[2024-06-17] MEDS: dexAMETHasone**PF** 10 MG/ML VIAL IV SCH (09:43)
--- NOTE | 2024-06-17 09:47 | History & Physical Bridge Note ---
Date of Service June 17, 2024 History & Physical Bridge Note I have examined the patient, reviewed the History & Physical and in the interval since the performance of the History & Physical I have noted the following changes of clinical significance: no changes noted
[2024-06-17] MEDS ORDERED: ePHEDrine sulfate 50 MG/ML AMP IV PRN (10:19)
[2024-06-17] MEDS ORDERED: ONDANSETRON INJ 2 MG/ML 2 ML VIAL IV PRN ×2 (10:19→13:52)
[2024-06-17] MEDS ORDERED: ATROPINE SULFATE 0.1 MG/ML 10ML SYR IV PRN (10:19)
[2024-06-17] MEDS ORDERED: fentaNYL citrate PF 100 MCG/2 ML VIAL IV PRN (10:19)
[2024-06-17] MEDS: TRANEXAMIC ACID 1,000 MG **IV Pre-op IV SCH (10:28)
[2024-06-17] MEDS: ceFAZolin 2000MG 2,000 MG/15 ML SYR IV SCH ×2 (10:40→17:38)
[2024-06-17] MEDS: ROPIV 0.5% 246mg, Ketorolac 30mg, EPINEPHrine 0.5mg in NSS INFIL SCH (11:18)
[2024-06-17] MEDS: ORTHO JOINT ANESTHETIC ONE (11:18)
[2024-06-17] MEDS: TRANEXAMIC ACID 1,000 MG **IV Intra-op IV SCH (12:20)
--- NOTE | 2024-06-17 13:05 | XRay Report ---
XR knee RT 1 or 2V routine CLINICAL HISTORY: Surgical Post Op COMPARISON: None FINDINGS: Right knee prosthesis shows no hardware complication. There is expected soft tissue gas. S kin manjula are present. IMPRESSION: Unremarkable postoperative exam. ACT 112: Negative or not required by law. Electronically signed by: Andrew Masterson M.D. 06/17/2024 1:03 PM
--- NOTE | 2024-06-17 13:29 | Anesthesiology Progress Note ---
Date of Service June 17, 2024 Anesthesia Post Procedure Vital Signs Vital Signs: Temp Pulse Pulse Resp BP Pulse Ox O2 Del Method 06/17/24 13:21 159/76 H 06/17/24 13:15 97.3 F L 68 17 168/68 H 96 Room Air 06/17/24 13:05 71 18 152/88 H 96 Room Air 06/17/24 12:55 71 15 151/87 H 100 Oxymask 06/17/24 12:45 72 18 155/78 H 100 Oxymask 06/17/24 12:39 96.8 F L 70 17 152/71 H 99 Oxymask 06/17/24 09:33 97.5 F L 79 18 175/79 H 94 Room Air O2 Flow Rate 06/17/24 13:21 06/17/24 13:15 06/17/24 13:05 06/17/24 12:55 2 06/17/24 12:45 9 06/17/24 12:39 9 06/17/24 09:33 Pain Intensity Left Shoulder: Pain Intensity: 2 Transfer of Care Handoff Completed per policy Notes Mental Status: alert / awake / arousable and participated in evaluation Patient Amnestic to Procedure: Yes Nausea / Vomiting: adequately controlled Pain: adequately controlled Airway Patency, RR, SpO2: stable & adequate BP & HR: stable & adequate Hydration State: stable & adequate Neuraxial Anesthesia: was administered and sensory block is resolving Anesthetic Complications: no major complications apparent and Pt Satisfied with anesthetic care
[2024-06-17] MEDS ORDERED: oxyCODONE HCL IR 5 MG TAB (IMMEDIATE RELEASE) PO PRN (13:52)
[2024-06-17] MEDS ORDERED: bisacodyL 10 MG SUPP PR PRN (13:52)
[2024-06-17] MEDS ORDERED: NALOXONE HCL 0.4 MG/1 ML VIAL/CARP IV PRN (13:52)
[2024-06-17] MEDS ORDERED: METOCLOPRAMIDE HCL INJ 5 MG/ML 2 ML VIAL IV PRN (13:52)
[2024-06-17] MEDS ORDERED: HYDROmorphone INJ 0.5 MG/0.5 ML SYR IV PRN (13:52)
[2024-06-17] MEDS ORDERED: MAGNESIUM HYDROXIDE SUSP 30 ML UDC PO PRN (13:52)
[2024-06-17] MEDS: KETOROLAC TROMETHAMINE 15 MG/ML VIAL IV SCH (14:11)
[2024-06-17] MEDS: SODIUM CHLORIDE 0.9% 1,000 ML IV SCH (14:11)
[2024-06-17] MEDS: PREGABALIN 100 MG CAP PO SCH (14:11)
--- NOTE | 2024-06-17 14:19 | Operative Report ---
PG Post Operative Report Pre & Post Diagnosis Operation Date: 06/17/24 11:00 Pre-Op Diagnosis: Right Knee Osteoarthritis Post-Op Diagnosis: Right Knee Osteoarthritis I identified the patient and participated in the time-out.: Yes Procedure Operation Date: 06/17/24 11:00 Actual Procedures p Right Total Knee Arthroplasty(Right) - Chadwick Berg DO Surgeon Chadwick Berg DO Organ Tuner Daniel Chambers PA-C Estimated Blood Loss 150 Findings Consistent with Post-Op Diagnosis Specimens Right femoral and tibial bone Description of Procedure Implants used: I used a Jay Persona total knee arthroplasty system with a size 9+ PRK femur, E tibia, 31 oval patella, and a size 12 CCK polyethylene bearing. All components were cemented in place with Biomet cement. Leyda arrived [facility] for the above procedure. She was seen in the preoperative holding area and the operative extremity was identified and signed. She was given a preoperative antibiotic, TXA, a spinal anesthetic and an adductor nerve block. She was taken back to the operating room and laid on the table in supine position. She was given basic sedation. The operative knee was then prepped and draped in sterile fashion. A timeout was done, and the patient and the operative extremity was properly identified. A midline incision was made directly over the patella. Dissection was taken down to the extensor mechanism. A medial parapatellar arthrotomy was used. The medial retinaculum was released and the fat pad was mostly excised. The knee was flexed and the ACL, PCL, and meniscus were removed. A drill was sent down the center of the femoral canal followed by an intramedullary esdras. Off that esdras a distal femoral cutting block was placed. 9 mm was resected off the distal femur at 5 of valgus. A posterior referencing AP sizing guide was then placed on the distal femur. The femur measured to be a size 9. 2 drill holes were placed in 3 of external rotation. A 4-in-1 cutting block was then impacted into place. Anterior, posterior, and chamfer cuts were then made. The proximal tibia was then exposed. An external tibial alignment guide was placed. A tibial cut guide was then anchored in place and the proximal tibia was then resected. The posterior aspect of the knee was then opened up and any additional meniscus fragments and osteophytes were removed. The tibia measured to be a size E. The tibial plate was then placed in the appropriate rotation and the tibia was drilled and punched. Trial components were then placed. I used a size 12 CCK polyethylene insert. The knee was brought through a full range of motion and felt to be stable. The peg holes for the femoral component were then drilled. The patella was then everted and 9 mm was resected off the posterior aspect of the patella. The patella measured to be a size 31 oval. 3 peg holes were then drilled. A trial patella was placed. The knee was once again brought through a full range of motion and felt to be stable. Trial components were then removed. The surrounding soft tissues were injected with 100 cc of an orthopedic pain control cocktail. All components were then cemented into place with Biomet cement. The final polyethylene insert was then snapped into place. Once cement was dry the tourniquet was deflated. He mostasis was obtained. A dilute betadyne lavage was then done for 3 minutes. The joint was then irrigated with normal saline solution. The medial parapatellar arthrotomy was then closed with #1 Vicryl suture. The skin was closed with 2-0 Vicryl, 3-0V lock suture, and manjula. A soft compressive dressing was placed. She was then transferred to a hospital bed and taken to the postanesthesia care unit in stable condition. She tolerated the procedure well. Daniel Chambers PA-C, was present for the entire procedure. He was critical for patient positioning, prepping, draping, retraction exposure, wound closure and application of sterile dressing. I attest to the content of the Intraoperative Record and any orders documented therein. Any exceptions are noted below.
[2024-06-17] MEDS: DOCUSATE SODIUM 100 MG CAP PO SCH (20:20)
[2024-06-17] MEDS: SENNA 8.6 MG TAB PO SCH (20:21)
[2024-06-17] MEDS: ASPIRIN 81 MG ECTAB PO SCH (20:21)
[2024-06-17] MEDS: SERTRALINE HCL 50 MG TABLET PO SCH (20:22)
[2024-06-17] MEDS: ATORVASTATIN 10 MG TAB PO SCH (20:22)
[2024-06-18 03:24] VITALS: RESP 16
[2024-06-18] MEDS: LEVOTHYROXINE SODIUM 25 MCG TABLET PO SCH (05:27)
[2024-06-18 07:40] VITALS: BP 144/77; PULSE 87; TEMP 97.9; O2SAT 93
[2024-06-18] MEDS: dexAMETHasone 4 MG TAB PO SCH (08:10)
[2024-06-18] MEDS: MULTIVITAMIN TAB PO SCH (08:17)
--- NOTE | 2024-06-18 12:43 | Orthopedic Progress Note ---
Date of Service June 18, 2024 Assessment & Plan (1) Status post right knee replacement: Assessment: Status post right total knee arthroplasty. Plan: Overall, she is doing quite well today with good pain control the right knee. She will work with physical therapy later this morning to work on ambulation and range of motion exercises. She was started on aspirin for DVT prophylaxis. She can be discharged home later this morning pending formal physical therapy evaluation recommendation. Dressings can be changed today after she finishes with physical therapy and prior to discharge. Discharge medication was discussed with all questions answered to the patient satisfaction with understanding. She will follow-up with orthopedics in 2 to 3 weeks for continued postoperative management or sooner if needed. Subjective . Leyda was seen this morning resting comfortably in no apparent distress. She notes that her pain is well-controlled to the right knee. She has been up and out of bed without any significant issues. She has yet to work physical therapy this morning. She denies any concerns with her surgical incision site. She denies any active bleeding, discharge, or signs of infection. She denies any other concerns today. Review of Systems All systems reviewed & are unremarkable except as noted in HPI & below. Physical Exam . On physical examination of the right knee, the dressings are clean, dry, in place with no signs of active bleeding, discharge, or signs of infection. Her leg is on full extension. She has limited range of motion and strength secondary to postoperative stiffness soreness. Calf soft nontender to palpation. Negative Homans' sign. Intact plantarflexion dorsiflexion of right ankle. +2 DP and PT pulse. Less than 2-second capillary refill. Normal sensation. Neurovascular intact. Results & Data Results & Data Laboratory Results . Diagnostic Findings . Knee X-Ray 06/17/24 12:42 XR knee RT 1 or 2V routine CLINICAL HISTORY: Surgical Post Op COMPARISON: None FINDINGS: Right knee prosthesis shows no hardware complication. There is expected soft tissue gas. Skin manjula are present. IMPRESSION: Unremarkable postoperative exam. ACT 112: Negative or not required by law. Electronically signed by: Andrew Masterson M.D. 06/17/2024 1:03 PM PG Care Time/CCT Total # of Minutes Spent Total Time Spent with Patient: Total time spent is greater than 50% in coordination of care (as documented) at patient's floor/unit and/or counseling patient: Coding Level of Care Code 36616 Post Operative Follow-Up Diagnoses Status post right knee replacement Z96.651
--- NOTE | 2024-06-18 12:44 | Discharge Summary ---
Date of Service June 18, 2024 Principal Diagnosis Same as "Discharge Diagnosis" noted below under Discharge Instructions. Discharge Exam . On physical examination of the right knee, the dressings are clean, dry, in place with no signs of active bleeding, discharge, or signs of infection. Her leg is on full extension. She has limited range of motion and strength secondary to postoperative stiffness soreness. Calf soft nontender to palpation. Negative Homans' sign. Intact plantarflexion dorsiflexion of right ankle. +2 DP and PT pulse. Less than 2-second capillary refill. Normal sensation. Neurovascular intact. Discharge Data Procedures Performed Operation Date: 06/17/24 11:00 Actual Procedures p Right Total Knee Arthroplasty(Right) - Chadwick Berg DO Ordered Studies 06/17/24 05:00 US - OR guided needle placemen Routine Hospital Course (1) Status post right knee replacement: On June 17, 2024 Leyda arrived at [facility] and underwent a right total knee arthroplasty performed by Dr. Berg with no complications. She had a spinal anesthetic. Postoperatively, she was started on aspirin for DVT prophylaxis and transferred to the general orthopedic floor in stable condition. Her hospital course was uneventful. On postoperative day #1, her vital signs are stable and her pain is well-controlled. She participated well physical therapy working on ambulation range of motion exercises. She was then discharged home in stable condition. She will follow-up with orthopedics in 2 to 3 weeks for continued postoperative management or sooner if needed. PG Care Time/CCT Total # of Minutes Spent Total Time Spent with Patient: Total time spent is greater than 50% in coordination of care (as documented) at patient's floor/unit and/or counseling patient: Discharge Plan Discharge Items Patient Disposition: Home - Home Health Services Reason For Visit: Right Knee Arthritis Discharge Diagnosis: Same Activity: Per Instructions section Non-emergency contact: Surgeon Call non-emergency contact if: your temperature is above 101.5, your wound has increased redness, your wound has increased drainage and your wound pain has increased Follow-up/Referrals: Deya Purdy D.O. [Primary Care Provider] - Diet: Regular Addtl Attending Provider Instructions: Activity and Therapy Recommendations: * If you are using [facility] then therapy will be provided at your home until they feel you have accomplished all of your goals. * If you are using [facility] then Physical Therapy will be provided until they feel you are ready to start Outpatient Physical Therapy. * If you are not using home therapy then Outpatient Physical Therapy should start about 3-5 days from your day of surgery. Therapy will last about 6-10 weeks * It is important not to put a pillow under your knee when you are relaxing or sleeping. It is just as important to make sure you are getting your knee perfectly straight as it is to regain your knee bend. * You were shown a series of exercises in the hospital. Do these exercises three times each day including the exercises you were shown in physical therapy. * Get up and walk several times each day. For the first four weeks, try not to stand or walk for more than one hour at a time. If you do stand or walk for more than one hour, you will not hurt anything, but your leg will likely swell. * As you feel comfortable, you may change from the walker or crutches to a cane and then to independent walking. Medications: * Narcotic You will likely be sent home from the hospital with a prescription for the narcotic pain medication that worked best throughout your stay. * Cefadroxil -take the antibiotic twice a day for 10 days to help prevent infection. * Aspirin Most patients will be required to take Aspirin 81mg twice a day for 6 weeks after surgery. This is obtained [id number] and a prescription is not necessary. * Other medications may be prescribed for specific circumstances. If you have any questions, please call the office at . * Resume previous home medications unless otherwise instructed TEDs/Elastic Stockings: The white elastic stockings help limit swelling and prevent blood clots from forming in your legs.~ The more you wear them, the more they work. Wear them for 2 weeks. Dressing Care: The dressing can be changed after physical therapy on postop day #1. Daily dry dressing changes for a few days, especially if the incision is still draining some. If the incision is not draining then you may leave the manjula open to air. If there is a little bit of drainage or if the manjula are getting stuck on your clothing then cover the incision with a dry dressing. The manjula will be removed at your 2 week follow-up appointment. Showering: You may shower 5 days from the day of surgery as long as the incision is no longer draining. You may shower with the manjula exposed. Let soapy water run over the manjula and pat them dry. Do not scrub or soak the incision. Diet: You may resume your previous diet. Things To Watch For: * Drainage from the incision site that occurs more than one week after your surgery. * Increased redness at the incision site. * Fever above 102 degrees Fahrenheit. * Unusual chest pain or shortness of breath. * Call [facility] at with any of the above problems Follow-Up Visit: Follow-up with Dr. Berg's office 2-3 weeks after your day of surgery. We will remove your manjula and answer any questions. If you have any additional questions or concerns, Dr Berg is usually in the office at the same time and will be available An appointment was probably scheduled when you signed-up for surgery in the office. If you have any questions call Office Instructions: More detailed instructions as well as Frequently Asked Questions were provided in a folder by our office when you signed-up for surgery. Please review these instructions when you get home. If you have any further questions or concerns, please feel free to call the office at [phone] Pending Studies at Discharge: No Stand-Alone Forms: [facility], Smoking Cessation Medications and DC Order Prescriptions: New aspirin 81 mg Tablet,Delayed Release (Dr/Ec) 81 mg PO BID 42 Days Qty: 0 0RF cefadroxil 500 mg capsule 500 mg PO BID 10 Days Qty: 20 0RF oxycodone 5 mg tablet 5 mg PO Q6H PRN (Reason: pain) Qty: 30 0RF Continued albuterol sulfate 90 mcg/actuation Hfa Aerosol Inhaler 2 puff INHALATION QID PRN (Reason: sob) sertraline [Zoloft] 50 mg Tablet 50 mg PO BID pregabalin [Lyrica] 100 mg Capsule 100 mg PO TID multivitamin Tablet 1 tab PO QAM atorvastatin [Lipitor] 10 mg Tablet 10 mg PO PM levothyroxine 25 mcg Tablet 25 mcg PO QAM loratadine [Claritin] 10 mg Tablet 10 mg PO QAM vit C-vit [id number] Capsule 1 cap PO QAM coenzyme Q10 [CoQ-10] 100 mg Capsule 100 mg PO QAM omega-3 fatty acids Capsule 1,250 mg PO BID cholecalciferol (vitamin D3) [Vitamin D3] 50 mcg (2,000 unit) Tablet 50 mcg PO BID Glucosamine Chondroitin 550-30-1 mg Capsule 1 cap PO BID calcium 1 dose PO BID torsemide 20 mg Tablet 20 mg PO DAILY PRN (Reason: Edema) acetaminophen [Tylenol Arthritis Pain] 650 mg Tablet Extended Release 650 mg PO BID Patient Comments: pt states that she takes 2 tablets bid Held aspirin 81 mg Capsule 81 mg PO BID 42 Days Qty: 0 0RF Hold Instructions: Resume on 07/31/24. Feliz/Other Patient Handouts: Knee Replace Surg Post Op Exercises Admission Data Admit Date/Time: 06/17/24 12:42 Attending Provider: Chadwick Berg Admit Provider: Chadwick Berg Primary Care Provider: Deya Puryd Other Providers: [facility],Home [facility] Other Interventions: Discharge Summary Assessment (RN) Last Done: 06/18/24 09:44
== END 2024-06-18 10:46 | disposition home health service (06) ==
LOC: ASU 09:00 → 3E 09:00